=== PATIENT | female | born 1940 | race Caucasian/White ===

== ENCOUNTER 2019-09-13 07:36 | Day surgery (SDC) | payer OTHER ==
[~2019-09-13] VITALS: Ht 162.6 cm; Wt 98.9 kg
[~2019-09-13 07:36] MED LIST: ASPI-404 PO; FLUT100I IN; GABA400C11 PO; GABA800T97 PO; HYDR-4296 PO; ISOS30TA4 PO; LOSA-69 PO; METO-159 PO; OME20T PO; SERT-274 PO; TIZA2CAP7 PO
[2019-09-13] MEDS ORDERED: IODIXANOL 320MG/ML 100ML BTL IV ONE ×2 (07:41→08:54)
[2019-09-13] MEDS ORDERED: ANGIOMAX 250 MG VIAL IV ONE (08:29)
[2019-09-13] MEDS ORDERED: fentaNYL CITRATE 100 MCG/2 ML VL ONE (08:29)
[2019-09-13] MEDS ORDERED: VERAPAMIL 2.5MG/ML INJ 2ML VIAL IV ONE (08:29)
[2019-09-13] MEDS ORDERED: MIDAZOLAM HCL 1MG/1ML-2 ML VIAL ONE (08:30)
[2019-09-13] MEDS ORDERED: SODIUM CHL 0.9% 50 ML ONE ×2 (08:30→09:04)
[2019-09-13] MEDS ORDERED: NITROGLYCERIN 5MG/ML 10ML VIAL IV ONE (08:44)
[2019-09-13] MEDS ORDERED: HEPARIN SODIUM (PORCINE) 5000 UNITS/ML 1ML VIAL ONE (08:53)
[2019-09-13] MEDS ORDERED: ADENOSINE 90 MG/30 ML INJ IV ONE (09:04)
[2019-09-13] MEDS ORDERED: hydrALAZINE HCL 20 MG/ML VL ONE (09:15)
== END 2019-09-13 11:05 | disposition home or self-care (01) ==
LOC: CATH 07:36
PROVIDERS: ATTEND Internal Medicine
DX: I25.10 Atherosclerotic heart disease of native coronary artery without angina pectoris (principal); I25.2 Old myocardial infarction; I10 Essential (primary) hypertension; J44.9 Chronic obstructive pulmonary disease, unspecified; M06.9 Rheumatoid arthritis, unspecified; Z79.82 Long term (current) use of aspirin; Z79.899 Other long term (current) drug therapy; Z88.0 Allergy status to penicillin; Z88.8 Allergy status to other drugs, medicaments and biological substances; Z88.1 Allergy status to other antibiotic agents
CPT/HCPCS: 93458; 93571; C1769; C1887; C1894; J0153; J0360; J0583; J1644; J2250; J3010; J3490; J7030; Q9967; 99152; 99153